=== PATIENT | female | born 2000 | race Caucasian/White ===

== ENCOUNTER 2022-05-03 08:18 | Emergency (ER) | payer BC, MEDICAID, SELFPAY ==
--- NOTE | ~2022-05-03 | CT_ITS ---
EXAMINATION: CT abdomen pelvis wo con DATE: 05/03/2022 09:38 INDICATION: Right flank pain TECHNIQUE: Computed tomography (CT) of the abdomen and pelvis was performed without intravenous contr ast. The dose-length product (DLP) was 1381.88 mGy-cm. Automated exposure control and iterative recon struction technique were employed. COMPARISON: None FINDINGS: The lung bases are clear. The heart size is normal. The liver, spleen, pancreas, and adrena l glands are normal. A stone is present in the nondistended gallbladder. The kidneys are unremarkable . No stones are identified in the kidneys, ureters, or bladder. There is no hydronephrosis or hydrour eter. The appendix is normal. No pathologically enlarged abdominal or pelvic lymph nodes are identifi ed. There is no free intraperitoneal gas or evidence of bowel obstruction. IMPRESSION: 1. No CT correlate for the patient's symptoms. 2. Cholelithiasis without evidence of cholecystitis. Reviewed, dictated and finalized at location A. [employer]
[2022-05-03 08:25] VITALS: BP 150/92; PULSE 90; RESP 16; TEMP 36.6; O2SAT 99
--- NOTE | 2022-05-03 08:51 | ED.ABDPAIN ---
HPI - Abdominal Pain General Chief Complaint: Abdominal Pain Stated Complaint: ABD AND BACK PAIN Time Seen by Provider: 05/03/22 08:51 Source: patient and RN notes reviewed Mode of arrival: ambulatory Limitations: no limitations History of Present Illness HPI narrative: patient states she began having some lower back flank pain early this morning. She has a history of kidney stones. 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 She denies any symptoms of . She denies any dysuria, hematuria. With pain she has associated nausea vomiting. She is not vomiting now. MD elicited complaint: flank pain Pertinent past history: other ( kidney stones) Onset (ago): hour(s) (6) Pain Consistency: constant Location: R flank Severity: moderate Quality: stabbing and sharp Radiation: RLQ Migration to: no migration Exacerbating factors: nothing Relieving factors: nothing Associated symptoms: nausea and vomiting Related Data Home Medications Medication Instructions Recorded Confirmed No Home Medications 05/03/22 05/03/22 Allergies Allergy/AdvReac Type Severity Reaction Status Date / Time No Known Allergies Allergy Verified 05/03/22 08:51 Review of Systems Review of Systems: All systems reviewed & are unremarkable except as noted in HPI and below PMFSH Past Medical History Medical History (Updated 05/03/22 @ 10:25 by Manish Coon MD) Kidney stones Morbid obesity Surgical History Surgical History (Updated 05/03/22 @ 10:21 by Manish Coon MD) No pertinent past surgical history Social History Social History (Updated 05/03/22 @ 10:22 by Manish Coon MD) Smoking status: Never smoker Exam Const: General: healthy appearing, no acute distress and alert Nutritional Appearance: well nourished and obese morbidly obese Orientation/consciousness: patient oriented x3 Limitations: no limitations Other: female nurse in room during examination. HENMT: Head: normal to inspection Ears: external ears normal Face/Nose/Sinus: Normal external nose present Face and sinus: normal facial exam Mouth: Yes moist mucous membranes Eyes: Conjunctivae: conjunctivae normal Pupils: Equal, round and reactive pupils present EOM: EOMs intact bilaterally Neck: Neck: normal visual inspection Resp: Effort & Inspection: normal respiratory effort Auscultation: clear to auscultation bilaterally Cardio: Rate: regular rate Rhythm: regular rhythm GI: GI Palp: Yes Soft to palpation, Yes Tenderness to palpation present (GI) ( Mild right upper quadrant), No Guarding due to palpation present (GI) and No Rebound tenderness present Auscultation: normal bowel sounds Back/Spine/Pelvis: Back: CVA tenderness ( mild right) Cervical Spine: cervical ROM normal Thoracic/Lumbar Spine: thoraco-lumbar ROM normal Skin: General skin exam: normal color Rashes: no rashes Neuro: General: patient oriented x3, moves all extremities, no focal motor deficits and CN's II-XI intact bilaterally Speech: normal speech Gait exam (Neuro): Normal gait present Extrem: General: normal to inspection and no clubbing, cyanosis or edema Psych: Mental Status: mental status grossly normal Affect: normal affect Attitude: cooperative Course Vital Signs Vital signs: Vital Signs Temperature 36.6 C 05/03/22 08:25 Pulse Rate 90 05/03/22 08:25 Respiratory Rate 16 05/03/22 08:25 Blood Pressure 150/92 H 05/03/22 08:25 Pulse Oximetry 99 05/03/22 08:25 Oxygen Delivery Room Air 05/03/22 08:25 Temperature 36.7 C 05/03/22 10:30 Pulse Rate 88 05/03/22 10:30 Respiratory Rate 16 05/03/22 10:30 Blood Pressure 148/92 H 05/03/22 10:30 Pulse Oximetry 99 05/03/22 10:30 Oxygen Delivery Room Air 05/03/22 10:30 MDM - Abdominal Pain Differential Diagnosis Differential diagnosis: Likely abdominal pain, calculus of kidney, small bowel obstru
[2022-05-03 08:56] LABS: Pregnancy On Board Control Positive; Urine Pregnancy Test Negative
[2022-05-03 08:58] LABS: Appearance Urine Clear (Clear); Color Urine Yellow (Yellow)
[2022-05-03 08:59] LABS: Add Urine Microscopic? NO; Bilirubin Urine Negative (Negative); Blood Urine Negative (Negative); Glucose Urine UA Negative (Negative); Ketones Urine Negative (Negative); Leukocyte Esterase Ur Negative LEU/UL (Negative); Nitrate Urine Negative (Negative); Protein Urine Negative (Negative); Specific Grav Ur > 1.030 (1.010-1.020); Urobilinogen Urine 0.2 mg/dL (0.2-1.0)
[2022-05-03 09:25] LABS: Basophils Absolute Auto 0.05 K/mm3 (0.00-0.10); Basophils Percent Auto 0.3 % (0.0-1.0); Eosinophils Absolute Auto 0.05 K/mm3 (0.02-0.50); Eosinophils Percent Auto 0.3 % (1.0-6.0); Hematocrit 41.6 % (35.0-49.0); Hemoglobin 13.2 g/dL (12.0-15.0); Immature Granulocyte Absolute 0.08 K/mm3 (0.00-0.00); Immature Granulocyte Percent A 0.5 % (0.0-0.0); Lymphocytes Absolute Auto 1.86 K/mm3 (1.10-4.50); Lymphocytes Percent Auto 11.8 % (18.0-42.0); Mean Corpuscular HGB Conc 31.7 g/dL (32.0-36.0); Mean Corpuscular Hemoglobin 25.5 pg (27.0-31.0); Mean Corpuscular Volume 80.5 fL (78.0-102.0); Mean Platelet Volume 9.5 fl (9.2-11.8); Monocytes Absolute Auto 0.51 K/mm3 (0.10-0.90); Monocytes Percent Auto 3.2 % (2.0-11.0); Neutrophils Absolute Auto 13.2 K/mm3 (1.7-7.2); Neutrophils Percent Auto 83.9 % (50.0-70.0); Platelet Count Result 379 K/mm3 (150-420); Red Blood Count 5.17 M/mm3 (4.20-5.40); Red Cell Distribution Width 15.8 % (11.6-14.4); White Blood Count 15.7 K/mm3 (4.8-10.8)
[2022-05-03 09:56] LABS: Alanine Aminotransferase 20 U/L (14-59); Albumin Level 3.8 g/dL (3.4-5.0); Alkaline Phosphatase 71 U/L (46-116); Anion Gap 8 mmol/L (8-16); Aspartate Amino Transferase 11 U/L (15-37); Bilirubin,Total 0.2 mg/dL (0.00-1.00); Blood Urea Nitrogen 14 mg/dL (7-18); CRP 3.7 mg/dL (0.0-0.9); Calcium 8.9 mg/dL (8.5-10.1); Carbon Dioxide 27 mmol/L (21-32); Chloride 104 mmol/L (98-108); Estimated CRCL calculation 124 ml/min; Estimated Glomerular Filt Rate > 60; Glucose 110 mg/dL (70-99); Osmolality Calculated 289 mOsm/kg (285-295); Potassium 4.4 mmol/L (3.5-5.1); Sodium 139 mmol/L (136-145); Total Protein 8.2 g/dL (6.4-8.2)
--- NOTE | 2022-05-03 10:26 | PC.NURSE ---
ERP WAS AT BEDSIDE SPEAKING WITH PT AND MOTHER. WILL CONTINUE TO MONITOR.
[2022-05-03 10:30] VITALS: BP 148/92; PULSE 88; RESP 16; TEMP 36.7; O2SAT 99
== END 2022-05-03 10:30 | disposition home or self-care (01) ==
PROVIDERS: Emergency Provider Emergency Medicine; PCP Nurse Practitioner
DX: R10.9 Unspecified abdominal pain (principal)
CPT/HCPCS: 36415; 74176; 80053; 81003; 81025; 85025; 86140; 99284

== ENCOUNTER 2024-09-15 15:33 | Emergency (ER) | payer OTHER, SELFPAY ==
[2024-09-15] VITALS (7 sets, daily range): BP systolic 111–163; BP diastolic 82–95; PULSE 79–98; RESP 16–17; TEMP 37.2–37.8; O2SAT 99–100
--- NOTE | ~2024-09-15 | CT_ITS ---
CT abdomen pelvis wo con Ordering provider: Ari Colon MD History: 23 years Female with . Rt. side flank/ low back pain. Nausea, vomiting x4 days . Comparison: None. Technique: CT abdomen and pelvis without IV and without oral contrast. Automated exposure control and iterative reconstruction technique were employed. The dose-length product was 1657.33 mGy-cm. Findings: VISUALIZED LOWER CHEST: Normal. UPPER ABDOMINAL ORGANS: Liver: Borderline hepatomegaly. Gallbladder: Cholelithiasis. Spleen: Normal. Stomach/duodenum: Normal. Pancreas: Normal. Adrenals: Normal. Kidneys: Normal. PELVIC ORGANS: The bladder is normal. Slightly prominent left ovary which measures 2.6 x 4.3 cm. Cli nical correlation advised. BOWEL AND MESENTERY: Colon: No evidence of diverticulitis.. Normal appendix. Small Bowel: Normal. No obstruction. Peritoneum/mesentery: No free air or free fluid. No mesenteric lymphadenopathy. Small mesenteric lymp h nodes are noted. RETROPERITONEUM: Normal aorta. No retroperitoneal lymphadenopathy. MUSCULOSKELETAL: Superficial soft tissues: The superficial soft tissues are normal. Bones: Normal spine. IMPRESSION: 1. Cholelithiasis. 2. Mild hepatomegaly. 3. Slightly prominent left ovary. Ultrasound evaluation advised. 4. No evidence of appendicitis, diverticulitis or intestinal obstruction. No kidney stones. Reviewed, dictated and finalized at location A. IMPRESSION: 1. Cholelithiasis. 2. Mild hepatomegaly. 3. Slightly prominent left ovary. Ultrasound evaluation advised. 4. No evidence of appendicitis, diverticulitis or intestinal obstruction. No k idney stones.
--- OUTSIDE RECORDS SUMMARY | 2024-09-15 15:36 | XMS_ITS | Encounter Summary ---
Author Organization [facility] Address [address] [place] [id number] Care Team Providers Care Workers Compensation Examiner Name Role Phone Lilo Samuel [facility] Primary Care Provider [phone] Encounter Details Date Type Department Care Team (Late st Contact Info) Description 10/27/2018 Abstract SFL CONVERSION [address] [place] [address] , Generic Conversion, Social History Tobacco Use Types Packs/Day Years Used Date Smoking Tobacco: Never Assessed Comments Unknown Sex and Gender Information Value Date Recorded Sex Assigned at Not on file 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
--- OUTSIDE RECORDS SUMMARY | 2024-09-15 15:36 | XMS_ITS | Clinical Summary ---
Author Organization [facility] Address [address] [place] [id number] Care Team Providers Care Hair Preparer Name Role Phone Lilo Samuel [facility] Primary Care Provider [phone] Allergies No known active allergies Medications NON FORMULARYIndica tions: control pill Indications: control pill Active Social History Tobacco Use Types Packs/Day Years Used Date Smoking Tobacco: Never Smokeless Tobacco: Never Alcohol Use Standard Drinks/Week Comments Never 0 (1 standard drink = 0.6 oz pur e alcohol) Comments No Sex and Gender Information Value Date Recorded Sex Assigned at Not on file 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 Gender Identity Not on file Sexual Orientation Not on file Last Filed Vital Signs Vital Sign Reading Time Taken Comments Blood Pressure 168/99 02/06/2021 8:36 AM CDT Pulse 70 02/06/2021 8:36 AM CDT Temperature 35.9 C (96.6 F) 02/06/2021 8:36 AM CDT Respiratory Rate 20 02/06/2021 8:36 AM CDT Oxygen Saturation 100% 02/06/2021 8:36 AM CDT Inhaled Oxygen Concentration - - Weight 134.7 kg (297 lb) 02/06/2021 8:36 AM CDT Height 160 cm (5' 3 ) 02/06/2021 8:36 AM CDT Body Mass Index 52.61 02/06/2021 8:36 AM CDT Plan of Treatment Health Maintenance Due Date Last Done Comments Annual Physical 11/17/2002 Hepatitis C 11/17/2017 Hepatitis B Vaccines (1 of 3 - 19+ 3-dose series) 11/17/2018 DTaP, Tdap and Td Vaccines (7 - Tdap) 12/21/2019 12/20/2009, 12/23/2004, 02/21/2002, Additional history exists COVID-19 Vaccine ( season) 2024 12/03/2020, 11/09/2020 Cervical Cancer Screening Pap Smear (Age 21 to 29) Every 3 Years 01/29/2024 01/28/2021, 01/28/2021, 01/28/2021 Cervical Cancer Screening 01/29/2024 HPV Vaccines Completed 01/21/2014, 01/21, 12/10/2010 Meningococcal Vaccine Completed 12/21/2016, 014 Meningococcal B Vaccine Aged Out No l onger eligible based on patient's age to complete this topic Pneumococcal Vaccine: Pediatrics (0 to 5 Years) and At-Risk Patients (6 to 49 Years) Aged Out No longer eligible based on patient's age to complete this topic RSV Immunizations Under 20 Months Aged Out No longer eligible based on patient's age to complete this topic Insurance [place] [address] [address] MEDICAID Care Teams Hair Preparer Relationship Specialty Start Date End Date Lilo Samuel FNP-BC [address] [place] [address] PCP - General NURSE PRACTITIONER 02/06/21
--- OUTSIDE RECORDS SUMMARY | 2024-09-15 15:36 | XMS_ITS | Data Portability ---
Author Organization [facility] [place] Address [address] [place] [address] [place] [address] Assessment Encounter Date Assessment Date Assessment LastModified by Organization Details LastModified Time 01/28/2021 01/28/2021 Annual gynecological exam performed. Patient will come back in a year unless there are new symptoms. Not available 01/28/2021 12:51:00 06/03/2024 06/03/2024 Annual gynecological exam performed. Patient will come back in a year unless there are new symptoms. [email or web address] Not available 05/24/2024 10:03:11 Plan of Treatment Reminders Order Date Submit Date Provider Last Modified By Organization Details Last Modified Time Details Appointments None recorded. Lab pap, IG + reflex HPV if ASC-U - if hpv positive run subtyping 16, 18/45 2024 025 [facility] (Lab), [address], [place], [address], 09:59:55 test, urine 2024 025 [place], [address], [place], [address], 11:27:43 HbA1c (hemoglobin A1c), blood 2024 025 [facility] (Lab), [address], [place], [address], 5 22:35:11 TSH, serum or plasma 2024 025 [facility] (Lab), [address], [place], [address], 5 22:35:12 progesteron e, serum 2024 025 [facility] (Lab), [address] [place], [address], 5 22:35:12 prolactin, serum 2024 025 [facility] (Lab), [address] [place], [address], 5 22:35:12 FSH (follicle-s timulating hormone), serum 2024 025 [facility] (Lab), [address] [place], [address], 5 22:35:13 estradiol, serum 2024 025 [facility] (Lab), [address] [place], [address], 5 22:35:12 lh (luteinizin g hormone), serum 2024 025 [facility] (Lab), [address] [place], [address], 5 22:35:13 dhea-sulfat e, serum 2024 025 [facility] (Lab), [address] [place], [address], 5 22:35:11 testosteron e free/testos terone total, ratio, serum 2024 025 [facility] (Lab), [address] [place], [address], 5 22:35:13 17-hydroxyp rogesterone , QN, serum 2024 025 [facility] (Lab), [address], [place], [address], 5 22:35:13 lipid panel, blood 2024 025 [facility] (Lab), [address], [place], [address], 5 22:35:11 anti-lockett raymond hormone (amh), serum 2020 021 [facility], [address], [place], [address], 17:14:27 lh + FSH, serum 2020 021 [facility], [address], [place], [address], 17:14:27 CBC w/ auto diff 2020 021 [facility], [address], [place], [address], 17:14:27 Referral None recorded. Procedures None recorded. Surgeries None recorded. Imaging US, pelvis 2020 021 [email or web address] [place], [address], [address], [place], [address], 21:09:49 US, transvagina l 2020 021 [email or web address] [place], [address], [address], [place], [address], 21:09:49 US, pelvis, complete 2020 021 [email or web address] [place], [address], [place], [address], 2 11:28:07 Medication Orders Provera 10 mg tablet 2024 025 [facility]ARGAR[facility] [place], [address], [place], [address], 5 11:26:14 clomiphene citrate 50 mg tablet 2024 025 MARGARITA [facility] [place], [address], [place], [address], 5 11:26:16 Cyclafem 1/35 (28) 1 mg-35 mcg tablet 2020 021 [email or web address] [facility] [place], [address], [place], [address], 5 10:51:45 Cyclafem 1/35 (28) 1 mg-35 mcg tablet 2020 021 [email or web address] [facility] [place], [address], [place], [address], 5 10:51:45 Patient TargetsNo targets recorded. Patient InstructionsNo instructions recorded. Reason for Referral None Reported. 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 Locat ion: [place] Patho logy Recei basilio: 01/29 0734 First Scree n: McBri de, Marilee ret, CT Speci men: Scree naheed Pap - Image d, Cervi x STATE MENT OF ADEQU ACY: Satis facto ry for evalu ation Trans forma tion zone compo nent prese nt FINAL DIAGN OSIS: Negat jillian for Intra epith elial Lesio n or Pallavi dali (NIL) Funga l organ isms morph ologi milton consi stent with Carissa da spp Elect robb candelariajuli hardik d by Marilee Delcid ret, CT on 2020 at 9:01 AM ----- ----- ----- ----- ----- ----- ----- ----- ----- ----- ----- ----- ----- ----- ----- ----- ----- ---- COMME NT: Note: This speci men was revie wed by a Cytot echno logis t and/o r Patho logis t (as indic ated in this repor t) after evalu ation using the Thinp rep Imagi ng Syste m. CLINI GEREMIAS INFOR MATIO N: Menst rual Statu s: LMP (if appli cable ): Clini geremias Histo ry/Pr eviou s Pap: Type of Neopl hillary (if appli cable ): Signi fican t Clini geremias Findi ngs: Other Histo ry: Hormo tariq (if appli cable ): PAP EDUCA NEVA L NOTE: The Pap Test is a scree naheed test with an inher ent false negat jillian rate. Liqui d-bas e sampl ing may decre ase, but will not elimi royer, false negat jillian resul ts. A negat jillian resul t does not precl ude the prese nce and/o r devel opmen t of disea se, since the prese nce of abnor mal cells in the sampl e depen ds on the locat ion of the lesio n and sampl ing techn ique. Obi nued regul ar scree naheed is the best metho d of cance r preve ntion . If repor jane cytol ogic findi ng do not corre late with physi geremias and/o r histo rical findi ngs, critical access hospital er inves tigat ion is recom jeanie d, as clini milton starr nted. Not Available [facility] (Lab) [address], [place], [address], 02/02/2021 10:03:54 01/29/20 21 01/28/2021 CT/GC (SYBIL) , THINP REP VIAL chlamydia trachomatis, PCR Negati ve negati ve Not Available [facility] (Lab) [address], [place], [address], 02/02/2021 10:03:55 01/29/20 21 01/28/2021 CT/GC (SYBIL) , THINP REP VIAL neisseria gonorrhoeae, PCR Negati ve negati ve Not Available [facility] (Lab) [address], [place], [address], 02/02/2021 10:03:55 01/29/20 21 01/28/2021 TRICH OMONA S VAGIN SUSAN (RRNA ) trichomonas vaginalis ribosomal RNA (rrna) Negati ve negati ve Not Available [facility] (Lab) [address], [place], [address], 02/02/2021 10:03:56 06/03/19 25 06/03/2024 IMAGE GUIDE D PAP, REFLE X HPV IF ASCUS ONLY image guided Pap, reflex HPV ASCUS only SEE RESULT S BELOW CASE REPOR T: Cytol ogy Gynec ologi geremias Repor t Case: [id number] Autho paulette g Provi andres: Dermo dy, Violet , 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 ----- ----- ----- ----- ----- ----- ----- ----- ----- ----- ----- ----- ----- ----- ----- ----- ----- ---- FINAL DIAGN OSIS: Negat jillian for Intra epith elial Lesio nilda or Pallavi mcnally (NIL) . 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 CLINI GEREMIAS INFOR MATIO N: Menst rual Statu s: LMP (if appli cable ): Clini geremias Histo ry/Pr eviou s Pap: Type of Neopl hillary (if appli cable ): Signi fican t Clini geremias Findi ngs: Other Histo ry: Hormo tariq (if appli cable ): PAP EDUCA NEVA L NOTE: The Pap Test is a scree naheed test with an inher ent false negat jillian rate. Liqui d-bas ed sampl ing may decre ase, but will not elimi royer, false negat jillian resul ts. A negat jillian resul t does not precl ude the prese nce and/o r devel opmen t of disea se, since the prese nce of abnor mal cells in the sampl e depen ds on the locat ion of the lesio n and sampl ing techn ique. Obi nued regul ar scree naheed is the best metho d of cance r preve ntion . If repor jane cytol ogic findi ng do not corre late with physi geremias and/o r histo rical findi ngs, furth er inves tigat ion is recom jeanie d, as clini milton starr nted. Not Available [facility] (Lab) [address], [place], [address], 06/09/2024 09:59:55 06/03/19 25 06/03/2024 DHEA SULFA TE DHEA-sulfate 666 ug/dL Femal e Range s Age(y ) Range (ug/d L) 10-15 34-28 0 15-20 65-36 8 20-25 148-4 07 25-35 99-34 0 35-45 61-33 7 45-55 35-25 6 55-65 19-20 5 65-75 9-246 > 75 12-15 4 : Routi ne : ENDOC ERVIC AL/CE RVICA L Not Available [facility] (Lab) [address], [place], [address], 06/11/2024 22:35:11 06/03/19 25 06/03/2024 HEMOG LOBIN A1C hemoglobin A1C 5.6 % 4.0-5. 6 : Routi ne : ENDOC ERVIC AL/CE RVICA L The Ameri can Diabe oliva Assoc iatio n recom mends that a prima ry goal of thera py shoul d be a HBA1C of < 7% and that physi cians shoul d reeva luate the treat ment regim en in patie nts with HBA1C value s consi stent ly > 8%. <5.7% Summer l 5.7 - 6.4% Incre ased risk for diabe oliva >=6.5 % Diagn ostic of diabe oliva <7.0% Goal of thera py >8.0% Actio n sugge sted Not Available [facility] (Lab) [address], [place], [address], 06/11/2024 22:35:11 06/03/19 25 06/03/2024 LIPID PANEL ,AMA (LDL- CALC) total cholesterol 139 mg/dL 0-199 Not Available [facility] (Lab) [address], [place], [address], 06/11/2024 22:35:11 06/03/19 25 06/03/2024 LIPID PANEL ,AMA (LDL- CALC) triglyceride s 82 mg/dL 0-150 NCEP Refer ence Value s for Trigl yceri william: Summer l: <150 mg/dL Borde rline High: 150 - 199 mg/dL High: 200 - 499 mg/dL Very High: >/= 500 mg/dL Not Available [facility] (Lab) [address], [place], [address], 06/11/2024 22:35:11 06/03/19 25 06/03/2024 LIPID PANEL ,AMA (LDL- CALC) HDL cholesterol 46 mg/dL >40 Not Available [facility] (Lab) [address], [place], [address], 06/11/2024 22:35:11 06/03/19 25 06/03/2024 LIPID PANEL ,AMA (LDL- CALC) LDL cholesterol 77 mg/dL 0-99 Cutof f value s recom jeanie d by the Natio nal Oumou stero l Educa tion Progr am: SHANDA ABLE: Oumou stero l <200 mg/dL LDL <100 mg/dL BORDE RLINE : Oumou stero l 200-2 39 mg/dL LDL 101-1 59 mg/dL HIGHE R RISK: Oumou stero l >240 mg/dL LDL >160 mg/dL , HDL <40 mg/dL Not Available [facility] (Lab) [address], [place], [address], 06/11/2024 22:35:11 06/03/19 25 06/03/2024 LIPID PANEL ,AMA (LDL- CALC) non-HDL cholesterol 93 mg/dL no refere nce range A reaso nable goal for non-H DL oumou stero l is one that is 30 mg/dL highe r than the LDL oumou stero l goal. Not Available [facility] (Lab) [address], [place], [address], 06/11/2024 22:35:11 06/03/19 25 06/03/2024 LIPID PANEL ,AMA (LDL- CALC) chol/HDL ratio 3.0 . 0.0-5. 0 : Altheai ne : ENDOC ERVIC AL/CE RVICA L On September 13, 2022, [facility] labor atori es griffin ed the equat ion for calcu latin g estim ated low-d ensit y lipop rotei n-cho leste rol (LDL- C) from the Fried leda equat ion to the Mala n/Hop kins equat ion. This new equat ion is only valid for lipid panel s with trigl yceri william < 400 mg/dL . Studi es have demon strat ed that this new equat ion will impro ve the accur acy of LDL-C , espec ially in scena adams when LDL-C gamaliel ntrat ions are relat ively low (< 100 mg/dL ), trigl yceri william are eleva jane, or patie nt is non-f astin g. Refer ences : - Mala munguia, Santiago Hensley, Ricardo Diaz , [facility] alfie hill, Aubrey De La Cruz, Alexei Topete. Saurabh portillo , and Sergio Wilks . 2013. Comp ariso n of a Novel Metho d vs the Fried leda Equat ion for Estim ating Low-D ensit y Lipop rotei n Oumou stero l Level s from the Stand malathi Lipid Profi le. GUSTAVO: The Journ al of the Ameri can Medic al Assoc iatio n 310 (19): 2060- . - Emilio murray V, Shelli J, Thomas murray A, Jazmín M, Josi e R, Vanita murray E, Saurabh portillo RS, Efe SR, Mala munguia SS. Fast ing Versu s Nonfa sting and Low-D ensit y Lipop rotei n Oumou stero l Accur acy. Circu latellen n. 2017May 23;137 (1):1 0-19. Not Available [facility] (Lab) [address], [place], [address], 06/11/2024 22:35:11 06/03/19 25 06/03/2024 TSH, REFLE X FREE T4 TSH 3.12 uIU/m L 0.30-5 .33 : Routi ne : ENDOC ERVIC AL/CE RVICA L Not Available [facility] (Lab) [address], [place], [address], 06/11/2024 22:35:12 06/03/19 25 06/03/2024 PROLA CTIN prolactin, total 8.28 NG/mL 4.79-2 3.30 This assay was perfo rmed using [employer] ratio n reage nts and test kits. Value s obtai dayton with other assay metho ds or kits canno t be used inter griffin eably . : Routi ne : ENDOC ERVIC AL/CE RVICA L Not Available [facility] (Lab) [address], [place], [address], 06/11/2024 22:35:12 06/03/19 25 06/03/2024 ESTRA DIOL estradiol 46.1 pg/mL This assay was perfo rmed using [employer] ratio n reage nts and test kits. Value s obtai dayton with other assay metho ds or kits canno t be used inter griffin eably . Femal e Estra diol Range s: Folli cular phase 12.4- 233 pg/mL Ovula tion phase 41.0- 398 pg/mL Lutea l phase 22.3- 341 pg/mL Postm enopa usal <5-13 8 pg/mL Healt hy Pregn ant Women 1st Trime ster 154-3 243 pg/mL 2nd Trime ster 1561- 64042 pg/mL 3rd Trime ster 8525- >3000 0 pg/mL : Routi ne : ENDOC ERVIC AL/CE RVICA L Not Available [facility] (Lab) [address] [place], [address], 06/11/2024 22:35:12 06/03/19 25 06/03/2024 PROGE STERO NE progesterone 0.32 NG/mL This assay was perfo rmed using [employer] ratio n reage nts and test kits. Value s obtai dayton with other assay metho ds or kits canno t be used inter [facility] . Femal e Proge stero ne Range s: Folli cular phase 0.06- 0.89 ng/mL Ovula tion phase 0.12- 12.00 ng/mL Lutea l phase 1.83- 23.90 ng/mL Postm enopa usal <0.05 -0.13 ng/mL Healt hy Pregn ant Women 1st Trime ster 11.0- 44.30 2nd Trime ster 25.40 -83.3 0 3rd Trime ster 58.70 -214. 00 : Routi ne : ENDOC ERVIC AL/CE RVICA L Not Available [facility] (Lab) [address] [place], [address], 06/11/2024 22:35:12 06/03/19 25 06/03/2024 FSH FSH 4.8 mIU/m L This assay was perfo rmed using [employer] ratio n reage nts and test kits. Value s obtai dayton with other assay metho ds or kits canno t be used inter [facility] . Femal es Folli cular : 3.5-1 2.5 mIU/m L Ovula tion: 4.7-2 1.5 mIU/m L Lutea l: 1.7-7 .7 mIU/m L Postm enopa use: 25.8- 134.8 mIU/m L : Routi ne : ENDOC ERVIC AL/CE RVICA L Not Available [facility] (Lab) [address] [place], [address], 06/11/2024 22:35:13 06/03/19 25 06/03/2024 LH (LUTE NIZIN G HORMO NE) LH 10.1 mIU/m L This assay was perfo rmed using [employer] ratio n reage nts and test kits. Value s obtai dayton with other assay metho ds or kits canno t be used inter [facility] . Femal es Mid-F ollic ular: 2.4-1 2.6 mIU/m L Mid-C ycle: 14.0- 95.6 mIU/m L Mid-L uteal : 1.0-1 1.4 mIU/m L Postm enopa use: 7.7-5 8.5 mIU/m L : Routi ne : ENDOC ERVIC AL/CE RVICA L Not Available [facility] (Lab) [address], [place], [address], 06/11/2024 22:35:13 06/03/19 25 06/03/2024 TESTO STERO NE, FREE( DIALY SIS) AND TOTAL (LC/M S/MS) testosterone , total 44 NG/dL 2-45 For addit ional infor derian neal e refer to http: //[facility] shyam munguia.que stdia gnost ics.c om/fa q/ Total Testo stero neLCM SMSFA Q165 (This link is being provi ded for infor edvin rizvi/ educa neva l purpo ses only. ) This test was devel oped and its damian tical perfo rmanc e greg cteri stics have been deter mined by [employer] mazin isaac [facility], [place]. It has not been clear ed or appro basilio by the U.S. Food and Drug Admin istra tion. This assay has been valid ated pursu ant to the CLIA regul ation s and is used for clini geremias purpo ses. Not Available [facility] (Lab) [address], [place], [address], 06/11/2024 22:35:13 06/03/19 25 06/03/2024 TESTO STERO NE, FREE( DIALY SIS) AND TOTAL (LC/M S/MS) testosterone , free 7.6 pg/mL 0.1-6. 4 high This test was devel oped and its damian tical perfo rmanc e greg cteri stics have been deter mined by [employer] [facility] [place], [place]. It has not been clear ed or appro basilio by the U.S. Food and Drug Admin istra tion. This assay has been valid ated pursu ant to the CLIA regul ation s and is used for clini geremias purpo ses. : Routi ne : ENDOC ERVIC AL/CE RVICA L Perfo rming Organ izati on [facility]for [facility]: Site ID: [id number] Name: [employer] [facility] Insti tute Addre ss: [id number] [place], [place] Direc tor: Negro Salmon MD PhD Not Available [facility] (Lab) [address], [place], [address], 06/11/2024 22:35:13 06/03/19 25 06/03/2024 17-OH PROGE STERO NE 17-hydroxypr ogesterone, lc/MS/MS 37 NG/dL Adult Femal e Refer ence Range s for 17-Hy droxy proge stero ne: Pre-M enopa usal Mid Folli cular : 23-10 2 ng/dL Pre-M enopa usal Surge : 67-34 9 ng/dL Pre-M enopa usal Mid Lutea l: 139-4 31 ng/dL Postm enopa usal Phase : < or = 45 ng/dL Pregn mikhail: First Trime ster: 78-45 7 ng/dL Secon d Trime ster: 90-35 7 ng/dL Third Trime ster: 144-5 78 ng/dL This test was devel oped and its damian tical perfo rmanc e greg cteri stics have been deter mined by [facility]. It has not been clear ed or appro basilio by FDA. This assay has been valid ated pursu ant to the CLIA regul ation s and is used for clini geremias purpo ses. : Routi ne : ENDOC ERVIC AL/CE RVICA L Perfo rming Organ izati on Infor matio n: Site ID: [id number] Name: [facility]/Dajuan hols [facility] Miky Sanchezis tranjuan miguel , Addre ss: [id number] [place] [address] Direc tor: Joleen wolfe MD,Ph D,COLE Not Available [facility] (Lab) [address], [place], [address], 06/11/2024 22:35:13 06/03/19 25 06/03/2024 pregn mikhail test, urine HCG negati ve Not Available [place] [address], [place], [address], 06/03/2024 11:27:19 01/08/20 21 01/07/2021 US, pelvi s No observ ation record ed. [email or web address] [place] [address], [place], [address], 01/07/2021 15:44:04 01/08/20 21 01/07/2021 US, trans vagin al No observ ation record ed. [email or web address] [place] [address], [place], [address], 01/07/2021 15:44:13 01/08/20 21 01/07/2021 US, pelvi s No observ ation record ed. [email or web address] [address], [place], [address], 01/07/2021 19:54:33 Result Notes Documentation Provider Name and Address Organization Details Recorded Time Anti-mullerian Hormone (amh), Serum : amh, fsh, lh, cbc diff A Ac siddiqui [facility] 02/23/2021 09:33:24 Procedures Surgical History Date Name Laterality Status Provider Name and Address Organization Details Recorded Time 01/28/2021 Date of Last Pap Smear completed Lety Verdugo [facility] 03/31/2021 19:42:23 Imaging Results Imaging Date Name Status LastModified by Organization Details LastModified Time 01/07/2021 US, pelvis completed [email or web address] [place] [address], [place], [address], 01/07/2021 15:44:04 01/07/2021 US, transvaginal completed [email or web address] [facility] [facility] [address], [place], [address], 01/07/2021 15:44:13 01/07/2021 US, pelvis completed [email or web address] [address], [place], [address], 01/07/2021 19:54:33 Procedure Notes None recorded. Medical Equipment None Reported. Allergies No known drug allergies Medications Name Sig Start Date Stop Date Status Note LastModified by Organization Details LastModified Time cyclobenzap rine 10 mg tablet 01/28 completed Not Available Not Available Not Available clomiphene citrate 50 mg tablet Take one tablet PO once daily for 5 days starting on cycle day 5 2024 active Not Available Not Available Not Avai lable ondansetron HCl 4 mg tablet 01/28 completed Not Available Not Available Not Available ciprofloxac in 500 mg tablet 01/27 completed Not Available Not Available Not Available Provera 10 mg tablet Take 1 tablet every day by oral route for 10 days. 2024 active Not Available Not Available Not Avai lable Tiffany 0.35 mg tablet 06/03 completed Not Available Not Available Not Available Cyclafem 1/35 (28) 1 mg-35 mcg tablet Take 1 tablet every day by oral route for 30 days. 06/03 completed Not Available Not Available Not Available Vitals Date Recorded Body height Body mass index (BMI) Body weight Provider Name and Address Organization Details Last Updated DateTime 12/29/2020 158.12 cm 53.9 kg/m2 596734.93 g Lety Verdugo [facility] 12/29/2020 14:56:12 Date Recorded Systolic blood pressure Diastolic blood pressure Provider Name and Address Organization Details Last Updated DateTime 12/29/2020 132 mm[Hg] 82 mm[Hg] Payton Page, [facility] [address], [place], [address], [facility] 12/29/2020 15:19:26 Date Recorded Body height Body mass index (BMI) Body weight Provider Name and Address Organization Details Last Updated DateTime 01/28/2021 158.12 cm 53.9 kg/m2 776869.93 g Lety [facility] 01/28/2021 12:52:31 Date Recorded Systolic blood pressure Diastolic blood pressure Provider Name and Address Organization Details Last Updated DateTime 01/28/2021 124 mm[Hg] 81 mm[Hg] Payton Page [facility] [address], [place], [address], [facility] 01/28/2021 12:57:57 Date Recorded Body height Body mass index (BMI) Body weight Provider Name and Address Organization Details Last Updated DateTime 04/01/2021 158.12 cm 53.5 kg/m2 597006.75 g [facility] 04/01/2021 11:37:13 Date Recorded Systolic blood pressure Diastolic blood pressure Provider Name and Address Organization Details Last Updated DateTime 04/01/2021 122 mm[Hg] 80 mm[Hg] Payton Page, [facility] [address], [place], [address], [facility] 04/01/2021 12:01:09 Date Recorded Body height Body mass index (BMI) Body weight Systolic blood pressure Diastolic blood pressure Provider Name and Address Organization Details Last Updated DateTime 06/03/2024 158.12 cm 56.2 kg/m2 782247.9 2 g 132 mm[Hg] 84 mm[Hg] Kaylee Monzon [facility] 10:52:02 Social History Question Answer Notes LastModified by Organizat ion Details LastModified Time Do You Have An Advance Directive? No Information not available 12/29/2020 What Is Your Level Of Alcohol Consumption? Occasional Information not available 12/29/2020 How Many Years Have You Consumed Alcohol? 1 Information not available 12/29/2020 Are You Blind Or Do You Have Difficulty Seeing? No Information not available 12/29/2020 What Is Your Level Of Caffeine Consumption? Occasional Information not available 12/29/2020 How Much Tobacco Do You Chew? None Information not available 12/29/2020 In The 14 Days Before Symptom Onset, Have You Had Close Contact With A Laboratory-confir med COVID-19 While That Case Was Ill? No Information not available 12/29/2020 In The 14 Days Before Symptom Onset, Have You Had Close Contact With A Person Who Is Under Investigation For COVID-19 While That Person Was Ill? No Information not available 12/29/2020 Have You Been To An Area Known To Be High Risk For COVID-19? No Information not available 12/29/2020 Are You Deaf Or Do You Have Serious Difficulty Hearing? No Information not available 12/29/2020 What Type Of Diet Are You Following? REGULAR Information not available 12/29/2020 What Is The Highest Grade Or Level Of School You Have Completed Or The Highest Degree You Have Received? 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 No Information not available 12/29/2020 Do You Use Protection During Sex? No Information not available 12/29/2020 Do You Use Your Seat Belt Or Car Seat Routinely? Yes Information not available 12/29/2020 Do You Have Smoke And Carbon Monoxide Detectors In Your Home? Yes Information not available 12/29/2020 How Much Tobacco Do You Smoke? No Information not available 12/29/2020 Do You Feel Stressed (tense, Restless, Nervous, Or Anxious, Or Unable To Sleep At Night)? [id number] Information not available 12/29/2020 Do You Use Any Illicit Or Recreational Drugs? No Information not available 12/29/2020 Do You Use Sunscreen Routinely? Yes Information not available 12/29/2020 Have You Used IV Drugs? No Information not available 12/29/2020 Sex: Female Functional Status Question Answer Note LastModified by Organization D etails LastModified Time Are you able to walk? YESWOREST Information not available 12/29/2020 What is your exercise level? None Information not available 12/29/2020 Mental Status None recorded. Family History Relationship Description Onset Age of this Age Resolved Age Notes LastModified by Organization Details LastModified Time Maternal Aunt Heart disease Not available 2020 14:56:24 Maternal Grandmother Heart disease Not available 2020 14:56:24 Paternal Grandfather Heart disease Not available 2020 14:57:14 Maternal Grandfather Heart disease Not available 2020 14:57:26 Medical History Condition Response No Past Medical History Y Gynecological History Statement/Question Response Abnormal Pap N Flow Moderate Date of LMP 03/05/2024 On BCP's at Conception? N N Was last menstrual period normal Y STIs/STDs N HPV Vaccine Y Duration of Flow (days) 7 Current Control Method Seeking Pre gnancy Are cycles usually normal N Sexually Active? Y N/A Age of first menstrual cycle 13 Date of Last Pap Smear 01/28/2021 Sexual Problems? N Desired Control Method Seeking Pre gnancy LMP Approximate N Obstetrics History GPAL:G 0 P 0 0 0 0 Past Encounters Encounter ID Performer Location Encounter Start Date Encounter Closed Date Diagnosis/Indication Diagnosis SNOMED-CT Code Diagnosis ICD10 Code Diagnosis Note [id number] [facility] [address] [address] 12/29/2020 14:15:28 12/29/2020 15:41:45 Secondary amenorrhea [id number] N91.1 Update Pat do EMBx/Pap/u pdate any labs that were not already done at her next visit.We discussed each of these things in full today so she knows that to expect & can mentally/e motionally prepare herself. We discussed reasons for Amenorrhea & informatio n was given for home review.Terrence mendez consider trial of provera or a OCP once we have completed the discussed components of her initial work up.WWE/Fol low up/Possibl e Embx at visit-30mi nsTVUS updated Time spent in visit is a total of 36 mins with at least 50% of visit consisting of counseling and review of plan of care.Addit ional precaution kassy measures were taken to minimize potential exposure to the Covid-19 virus during this patient s visit, including available hand gold leaf printer upon arrive, temperatur e check and being asked a series of screening questions. All staff wore face coverings during this encounter, as well as provided additional cleaning and sanitizing of all surfaces, including countertop s, pens, chairs, door handles, light switches, etc, prior to and following the patient s visit. [id number] [facility] [address],[facility] [place] [address] 01/07/2021 13:49:06 01/07/2021 14:18:07 Amenorrhea [id number] N91.2 [id number] Payton Page [facility] [address],[facility] [place] [address] 01/28/2021 12:16:48 01/28/2021 15:01:53 Gynecologic examination [id number] Z01.419 Take Calcium with Vitamin D 1200mg daily if not receiving in daily diet. It is strongly advised to have an annual flu shot and up can obtain at most pharmacies . If you have not had a TDap shot in the last 10 years you should obtain one as well. Discussed with patient & provided with informatio n regarding Gardisil vaccine to prevent the 4 strains for HPV that cause cervical cancer if under age 26. Encourage safe sexual practices, to use condoms and limit partners if not already in a monogamous relationsh ip. Do monthly self breast exams. Have mammogram yearly or every other year depending on family history. BRCA testing is now available for patients with strong genetic history of female cancer. If interested contact the office. Engage in daily exercise of low impact aerobic exercise 45-60 minutes 4-5 times weekly. Avoid tobacco and illicit drugs as well as using moderation with alcohol intake less than 1-2 8 oz beverages daily. This lifestyle behavior pattern will lead to less health conditions and longer life span. If BMI greater than 25 weight watchers or dietary consult advised. Patient received above instructio ns, and questions have been answered. If you have any questions please call or respond to this email. Patient was made aware of the patient portal and may obtain a paper copy of today's plan if desired. Primary pap doneSTD sent Secondary amenorrhea [id number] N91.1 TVUS reviewed wnlWe agreed to defer EMBx at this time with a lining of 5mm; but will consider moving forward to ensure no cellular abnormalit ies of lining. Routine labs reviewed that were completed from her PCP.Additi onal labs req given to complete at work since they are free.OCP challenge to see if we can even induce a withdrawal bleed. We did discuss that moving forward a referral to [facility] since her biggest goal is . RTO x 2mos.If no menses then we need [place] r/[place]. [id number] Payton Page [facility] [address] [address] 04/01/2021 11:27:35 04/01/2021 12:06:02 Secondary amenorrhea [id number] N91.1 Successful menstrual cycle with use of OCP.We decided to continue this therapy.Wh en she is ready to start trying for she will d/c her OCP.If she does not at that time have a menstrual cycle either monthly or every 3mos.She will contact our office & we will refer her to [facility] to discuss assistance with achieving . No other questions or concerns today. RF sent x 1yr Time spent in visit is a total of 15 mins with at least 50% of visit consisting of counseling and review of plan of care.Addit ional precaution kassy measures were taken to minimize potential exposure to the Covid-19 virus during this patient s visit, including available hand gold leaf printer upon arrive, temperatur e check and being asked a series of screening questions. All staff wore face coverings during this encounter, as well as provided additional cleaning and sanitizing of all surfaces, including countertop s, pens, chairs, door handles, light switches, etc, prior to and following the patient s visit. [id number] VIOLET GALLOWAY NP [place] [address] [address] 06/03/2024 10:42:25 06/03/2024 14:18:35 Gynecologic examination [id number] Z01.419 Annual gynecologi geremias exam performed. Patient will come back in a year unless there are new symptoms. Suggest Calcium with Vitamin D if not eating in diet. Patient advised to get annual flu shot. Recommend yearly physicals and perform monthly breast exams. Genetic testing is available for patients with family history of cancer. Engage in safe sexual practices, use condoms. Encouraged to have daily exercise. Avoid tobacco and illicit drugs, moderation of alcohol. If BMI greater than 25 dietary consult advised. If you have any questions please call or email. Pap smear - pap w/ HPV collected STI testing - declined Polycystic ovary syndrome [id number] E28.2 - Differenti al diagnosis of cause of infertilit y includes: anovulator y cycles r/t PCOS.- We discussed the potential causes of infertilit y and rationale behind testing.- We discussed her reproducti ve potential in the context of her BMI which is 56.2. We reviewed that given her BMI >25 her natural fertility could be improved by even just a 5% wt loss.- The patient is asked to repeat diagnostic labs.- Discussed the fertile time of the cycle and options for tracking ovulation, including ovulation predictor kits and basal body temperatur e.-- Discussed timed intercours e every other day starting on Day 6 of period through to the next period.-- Discussed using LH surge kits, usually accurate and would recommend intercours e that day and the next day, then can wait until next cycle.-- Discussed Provera challenge test to start cycle: Provera 10 mg PO daily x 10 days-- Discussed ovulation induction with Clomid, which is initiated cycle day 5 at a dose of 50 mg daily for five days. If ovulation does not occur in the first cycle of treatment, the dose is increased to 100 mg. The couple is advised to have intercours e every other day for one week beginning five days after the last day of medication .--Continu e using LH strips to track ovulation. Take test after one month. Call office if conception does not occur and also if patient does not start another period.-- Recommend re-establi shing with [facility] infertilit y clinic. Discussed importance of a healthy lifestyle to reduce metabolic risks that can be associated with PCOS. Discussed weight loss strategies . Discussed restarting Metformin if hgb A1C is abnormal.A ll questions answered. Patient verbalizes agreement to plan of care. Health Concerns Section Related Observation LastModified by Organization Detai ls LastModified Time None Recorded Concern Status LastModified by Organization Details LastModified Time None Recorded Advance Directives Directive N: Payers Encounter Date Sequence Insurance Name Policy Number Policy Dumont Covered Member ID Dumont Member ID Guarantor Name 12/29/2020 1 [place] [id number] Margot Bruner [id number] Margot [place] 01/07/2021 1 [place] [id number] Margot Bruner [id number] Margot [place] 01/28/2021 1 [place] [id number] Margot Bruner [id number] Margot [place] 04/01/2021 1 [place] [id number] Margot Bruner [id number] Margot [place] 06/03/2024 2 [facility] [id number] Margot [place] [id number] Margot [place] 06/03/2024 1 [place] [id number] Jaiden Austin [id number] Margot Avila Notes Date Note Type Note Provider Name and Address Organization Details Recorded Time 1 text/html AmenorrheaReported bypatient.Onset/Timing: no menses for >1 year (Had menses 15yo. Had two periods on her own since that time; then two periods on OCP around age 16yo. No periods since stopping OCP after 2mos of use age 16yo. She has never been . She is engaged & wants to consider moving forward.Never had a US or other evaluation besides recent labs done by PCP. She will bring hard copies of these labs to her next vist.) Duration:menses normal 3-7 days (THe two cycles she had were only about 4-7d.) Quality:normal flow Severity:mild Context:negative test (Taken tests at home & always neg.); testosterone levels (wnl) Associated Symptoms:no breast tenderness; no nausea; no vomiting; no hot flashes; no vaginal dryness; no new hair growth; no hair loss; no night sweats; no headaches; no new visual changes Payton Page [facility] [address] [place], [address], [facility] 12/29/2020 15:38:21 1 text/html Annual GYNReported bypatient.Menstrual cycle:Irregular cycle intervals(Secondary amenorrhea) Urinary symptoms:No hematuria; No incontinence Vulva:No genital lesion Vagina:Normal vaginal discharge Breast:No breast pain; No breast lump; No nipple discharge Current Contraception:Monogamou s relationship; control not practiced Sexual complaints:No sexual complaints; No pain during intercourse; Normal libido Menopausal Symptoms:No menopausal symptoms; Normal vaginal lubrication Psychological symptoms:No depression; No anxiety; No PMDD Preventive measures:Encourage self breast examination; Encourage regular exercise; Encourage no tobacco use; Encourage regular mammograms starting age 40; Followed with Q3 year pap smear and high risk HPV typing Payton Page [facility] [address], [place], [address], [facility] 01/28/2021 15:00:00 1 text/html Here today for medication check of Cyclafem for secondary amenorrhea. Payton Page [facility] [address], [place], [address], [facility] 04/01/2021 12:01:50 5 text/html Annual GYNReported bypatient.History:activ elvira trying to conceive Menstrual cycle:Irregular cycle intervals Urinary symptoms:No hematuria; No incontinence Vulva:No genital lesion Vagina:Normal vaginal discharge Breast:No breast pain; No breast lump; No nipple discharge Current Contraception: control not practiced Sexual complaints:No sexual complaints; No pain during intercourse; Normal libido Menopausal Symptoms:No menopausal symptoms; Normal vaginal lubrication Psychological symptoms:No depression; No anxiety; No PMDD Preventive measures:Encourage self breast examination; Encourage regular exercise; Encourage no tobacco use; Encourage regular mammograms starting age 40 Patient here for annual exam and to re-establish care.Patient states that she has hx of PCOS confirmed with labs and pelvic u/s in 2020.Patient was going to [facility] in 2022 for infertility treatments with letrazole d/t anovulatory cycles and was taking Metformin. Patient states that there was discussion of switching to Clomid. Patient has had HSG that was WNL and her partner had a normal semen analysis completed.Patient switched insurances and stopped treatments over the past year.Patient states that she was having cycles every 1-2 months until September 2023. Patient has had irregular periods, every 3-4 months since then. Patient's LMP was 02/2024.Patient requests baseline labwork. VIOLET GALLOWAY, BETTY [address], [place], [address], [facility] 06/03/2024 13:17:10 OBGyn Episode No OBEpisode recorded.
--- NOTE | 2024-09-15 15:37 | ED_ITS ---
HPI - Abdominal Pain General Chief Complaint: Urogenital-Female Stated Complaint: stomach/back pain Time Seen by Provider: 09/15/24 15:36 Source: patient Mode of arrival: ambulatory Limitations: no limitations History of Present Illness HPI narrative: Patient is a 23-year-old female with abdominal pain for the past 4 days. Initially she had nausea and vomiting on day 1 and that resolved at this time. She has no urinary or vaginal complaints. No fever but chills on and off. the pain is roughly suprapubic area and into the right lower quadrant as well as into the back of lower abdomen. She has history of PCOS. Patient is currently on fertility medications to include Clomid and she is trying to get . She has been doing fertility treatment for a few years. MD elicited complaint: abdominal pain Pertinent past history: none Onset (ago): day(s) (4) Pain Consistency: constant Location: RLQ and suprapubic Severity: moderate Pain scale (0-10): 4 Quality: cramping and sharp Radiation: back ( lower) Migration to: no migration Exacerbating factors: nothing Relieving factors: nothing Context: confirms other ( patient having abdominal pain and lower back pain over the past 4 days with associated chills and day 1 nausea vomiting) Associated symptoms: nausea ( resolved), vomiting ( resolved) and chills Treatments prior to arrival: other ( none) Related Data Home Medications ?Medication ?Instructions ?Recorded ?Confirmed ?Last Taken ?Type No Home Medications 05/03/22 05/03/22 Unknown History Allergies Allergy/AdvReac Type Severity Reaction Status Date / Time No Known Allergies Allergy Verified 09/15/24 15:37 Review of Systems 2 Review of Systems: All systems reviewed & are unremarkable except as noted in HPI and below Constitutional: Constitutional: Reports no additional constitutional complaints Eyes: Eyes: Reports no additional eye complaints ENT: Reports system reviewed and no additional complaints, except as documented Cardiovascular: Cardiovascular: Reports no additional cardiovascular complaints Respiratory: Respiratory: Reports no additional respiratory complaints Gastrointestinal: Gastrointestinal: Reports no additional gastrointestinal complaints Genitourinary: Genitourinary: Reports no additional female genitourinary complaints Musculoskeletal: Musculoskeletal: Reports no additional musculoskeletal complaints Integumentary/Breasts: Skin/Breast: Reports system reviewed and no additional complaints, except as docu Neurologic: Reports system reviewed and no additional complaints, except as documented Psychiatric: Psychiatric: Reports no additional psychiatric complaints Endocrine: Endocrine: Reports no additional endocrine complaints Hematologic/Lymphatic: Hematologic/Lymphatic: Reports no additional hematologic/lymphatic complaints Allergic/Immunologic: Allergic/Immunologic: Reports no additional allergic/immunologic complaints PMFSH Past Medical History Medical History Morbid obesity Kidney stones Surgical History Surgical History No pertinent past surgical history Social History Social History Smoking status: Never smoker Exam 2 Const: General: healthy appearing Nutritional Appearance: well nourished and obese Orientation/consciousness: patient oriented x3 Limitations: no limitations HENMT: Head: normal to inspection Ears: external ears normal F sari/Nose/Sinus: Normal external nose present Eyes: Conjunctivae: conjunctivae normal Pupils: Equal, round and reactive pupils present EOM: EOMs intact bilaterally Neck: Neck: normal visual inspection Resp: Effort & Inspection: normal respiratory effort and not labored A uscultation: clear to auscultation bilaterally and no crackles Cardio: Rate: regular rate Rhythm: regular rhythm Heart sounds: no murmurs GI: Inspection: non-distended GI Palp: Yes Soft to palpation, Yes Tenderness to palpation present (GI) ( right upper quadrant and right lower quadrant and suprapubic), No Guarding due to palpation present (GI), No Rigid due to palpation, No Hernia present, No Palpable mass present and No Rebound tenderness present Auscultation: normal bowel sounds : General: Yes bladder normal to palpation Back/Spine/Pelvis: Back: no CVA tenderness Skin: General skin exam: normal color Rashes: no rashes Wounds: no wounds Neuro: General: patient oriented x3 Cranial nerves: Yes Nystagmus not present Speech: normal speech Extrem: General: normal to inspection Psych: Mental Status: mental status grossly normal Affect: normal affect Attitude: cooperative Course Vital Signs Vital signs: Vital Signs Temperature 37.2 C 09/15/24 15:35 Pulse Rate 79 09/15/24 15:35 Respiratory Rate 16 09/15/24 15:35 Blood Pressure 163/94 H 09/15/24 15:35 Pulse Oximetry 100 09/15/24 15:35 Oxygen Delivery Room Air 09/15/24 15:35 Temperature 37.2 C 09/15/24 15:35 Pulse Rate 93 09/15/24 17:00 Respiratory Rate 17 09/15/24 17:00 Blood Pressure 145/87 H 09/15/24 17:00 Pulse Oximetry 99 09/15/24 17:00 Oxygen Delivery Room Air 09/15/24 15:35 MDM - Abdominal Pain MDM Narrative Medical decision making narrative: patient is a 23-year-old female with abdominal pain and associated back pain. Will start with urinalysis and and further expand based on the results. further abdomen pain workup done at this time. CT scan was done of the abdomen and pelvis and shows [place] [address]; we will transfer patient to get a stat ultrasound of the left ovarian area to rule out acute processes to include ovarian torsion and ectopic . Lab Data Attestation: I reviewed the patient's lab results. 09/15/24 17:17 09/15/24 17:17 Labs: Lab Results 09/15/24 09/15/24 Range/Units 15:37 17:17 WBC 21.5 H* (4.8-10.8) K/mm3 RBC 5.36 (4.20-5.40) M/mm3 Hgb 13.0 (12.0-15.0) g/dL Hct 42.0 (35.0-49.0) % MCV 78.4 (78.0-102.0) fL MCH 24.3 L (27.0-31.0) pg MCHC 31.0 L (32-36) g/dL RDW 16.6 H (11.6-14.4) % Plt Count 372 (150-420) K/mm3 MPV 9.5 (9.2-11.8) fl Immature Gran % (Auto) Not Reportable Neut % (Auto) Not Reportable Lymph % (Auto) Not Reportable [place] % (Auto) Not Reportable Eos % (Auto) Not Reportable Baso % (Auto) Not Reportable Lymph # (Auto) Not Reportable [place] # (Auto) Not Reportable Eos # (Auto) Not Reportable Baso # (Auto) Not Reportable Abs Immat Gran (auto) Not Reportable Absolute Neuts (auto) Not Reportable Absolute Nucleated RBC Not Reportable Total Counted 100 Neutrophils % (Manual) 70 (46-73) % Band Neutrophils % 0 (0-6) % Lymphocytes % (Manual) 28 (18-44) % Monocytes % (Manual) 2 L (3-9) % Nucleated RBC % Not Reportable Abs Neuts (Manual) 15.05 H (1.7-7.2) K/mm3 Abs Lymphs (Manual) 6.02 H (1.1-4.5) K/mm3 Abs Monocytes (Manual) 0.43 (0.1-0.90) K/mm3 Atypical Lymphocytes Present Platelet Estimate Adequate (Adequate) Schistocytes None seen Sodium 137 (136-145) mmol/L Potassium 3.5 (3.5-5.1) mmol/L Chloride 100 (98-108) mmol/L Carbon Dioxide 25 (21-32) mmol/L Anion Gap 12 (4-12) mmol/L BUN 9 (7-18) mg/dL Creatinine 0.93 (0.55-1.02) mg/dL Estim Creat Clear Calc 113 ml/min Estimated GFR > 60 (59 - ) Glucose 91 (70-99) mg/dL Calculated Osmolality 282 L (285-295) mOsm/kg Lactic Acid 1.0 (0.4-2.0) mmol/L Calcium 8.9 (8.5-10.1) mg/dL Total Bilirubin 0.7 (0.00-1.00) mg/dL AST 11 L (15-37) U/L ALT 21 (14-59) U/L Alkaline Phosphatase 79 (46-116) U/L Total Protein 8.6 H (6.4-8.2) g/dL Albumin 3.7 (3.4-5.0) g/dL Lipase 22 (16-77) U/L Urine Color Light yellow (Yellow) Urine Appearance Clear (Clear) Urine pH 6.0 (5.0-8.0) Ur Specific [place] <= 1.005 L (1.010-1.020) Urine Protein Negative (Negative) Urine Glucose (UA) Negative (Negative) Urine Ketones Negative (Negative) Ur Blood (Man) Negative (Negative) Urine Nitrate Negative (Negative) Urine Bilirubin Negative (Negative) Urine Urobilinogen 0.2 (0.2-1.0) mg/dL Leukocyte Esterase Rfl Negative (Negative) MAEVE/UL Urine Test Negative Imaging Data Attestation: I personally reviewed and interpreted this imaging study as follows: Radiologist's impression: ITS Impressions Abdomen/Pelvis CT 09/15/24 17:40 IMPRESSION: 1. Cholelithiasis. 2. Mild hepatomegaly. 3. Slightly prominent left ovary. Ultrasound evaluation advised. 4. No evidence of appendicitis, diverticulitis or intestinal obstruction. No kidney stones. Discharge Plan Discharge Clinical Impression: Left ovarian enlargement, Female fertility problems Leukocytosis Qualifiers: Leukocytosis type: unspecified Qualified Code(s): D72.829 - Elevated white blood cell count, unspecified Abdominal pain Qualifiers: Abdominal location: unspecified location Qualified Code(s): R10.9 - Unspecified abdominal pain Patient Disposition: Acute Care Hospital Condition: Stable Patient Language: Scottish Prescriptions: No Action No Home Medications Follow-up/Referrals: Keenan Linares MD [Primary Care Provider] - Time of Disposition: 18:10
--- NOTE | 2024-09-15 15:50 | PC.NURSE ---
Patient was able to urinate but dropped cup into toilet, patient provided water to drink and will try again.
--- OUTSIDE RECORDS SUMMARY | 2024-09-15 16:11 | XMS_ITS | Clinical Summary ---
Author Organization [facility] Address [address] [place] [id number] Care Team Providers Care Graduate Nurse Name Role Phone Unavailable Primary Care Provider Unavailabl e Allergies No known active allergies Medications metFORMIN 500 mg/5 mL oral solution Take 500 mg by mouth 3 times daily. 10/21/2022 Active CALCIUM CARBONATE-VITAMI N D3 ORAL Take by mouth. Active OMEGA-3 FATTY ACIDS-FISH OIL ORAL Take by mouth. Active Active Problems No known active problems Social History Tobacco Use Types Packs/Day Years Used Date Smoking Tobacco: Never Smokeless Tobacco: Never Tobacco Cessation:Counseling Given: Not Answered Alcohol Use Standard Drinks/Week Comments Not Currently 0 (1 standard drink = 0.6 oz pur e alcohol) Comments Unknown Sex and Gender Information Value Date Recorded Sex Assigned at Not on file Legal Sex Female 8:40 AM CDT Gender Identity Not on file Sexual Orientation Not on file Plan of Treatment Health Maintenance Due Date Last Done Comments HPV VACCINES (1 - 3-dose series) 11/17/2014 DTAP/TDAP/TD VACCINES (1 - Tdap) 11/17/2018 HEPATITIS B VACCINES (1 of 3 - 19+ 3-dose series) 10/21 CERVICAL CANCER SCREENING 11/17/2020 HPV/Cotest (21-29) 11/17/2020 PAP SMEAR 11/17/2020 INFLUENZA VACCINE (#1) 2023 Insurance BCBS BLUE PREFERRED MEDICAID [place]
[2024-09-15 16:42] LABS: Add Urine Microscopic? NO; Appearance Urine Clear (Clear); Bilirubin Urine Negative (Negative); Blood Urine Negative (Negative); Color Urine Light Yellow (Yellow); Glucose Urine UA Negative (Negative); Ketones Urine Negative (Negative); Leukocyte Esterase Ur Negative LEU/UL (Negative); Nitrate Urine Negative (Negative); Protein Urine Negative (Negative); Specific Grav Ur <= 1.005 (1.010-1.020); Urobilinogen Urine 0.2 mg/dL (0.2-1.0)
[2024-09-15 16:43] LABS: Pregnancy On Board Control Positive; Urine Pregnancy Test Negative
[2024-09-15 17:22] LABS: Mean Corpuscular Hemoglobin 24.3 pg (27.0-31.0); Mean Corpuscular Volume 78.4 fL (78.0-102.0); Mean Platelet Volume 9.5 fl (9.2-11.8); Platelet Count Result 372 K/mm3 (150-420); Red Blood Count 5.36 M/mm3 (4.20-5.40); Red Cell Distribution Width 16.6 % (11.6-14.4)
[2024-09-15 17:25] LABS: White Blood Count 21.5 K/mm3 (4.8-10.8)
[2024-09-15 17:36] LABS: Alanine Aminotransferase 21 U/L (14-59); Albumin Level 3.7 g/dL (3.4-5.0); Alkaline Phosphatase 79 U/L (46-116); Anion Gap 12 mmol/L (4-12); Aspartate Amino Transferase 11 U/L (15-37); Bilirubin,Total 0.7 mg/dL (0.00-1.00); Blood Urea Nitrogen 9 mg/dL (7-18); Calcium 8.9 mg/dL (8.5-10.1); Carbon Dioxide 25 mmol/L (21-32); Chloride 100 mmol/L (98-108); Estimated CRCL calculation 113 ml/min; Estimated Glomerular Filt Rate > 60; Glucose 91 mg/dL (70-99); Lipase 22 U/L (16-77); Osmolality Calculated 282 mOsm/kg (285-295); Potassium 3.5 mmol/L (3.5-5.1); Sodium 137 mmol/L (136-145); Total Protein 8.6 g/dL (6.4-8.2)
[2024-09-15 17:44] LABS: Band Neutrophils Percent 0 % (0-6); Neutrophils Absolute Manual 15.05 K/mm3 (1.7-7.2); Neutrophils Percent Manual 70 % (46-73); Total Cells Counted 100
[2024-09-15 17:45] LABS: Atypical Lymphocytes Present; Lymphocytes Absolute Manual 6.02 K/mm3 (1.1-4.5); Lymphocytes Percent Manual 28 % (18-44); Monocytes Absolute Manual 0.43 K/mm3 (0.1-0.90); Monocytes Percent Manual 2 % (3-9); Platelet Estimate Adequate (Adequate); Schistocytes None Seen
[2024-09-15] MEDS: MORPHINE SULFATE (*CRX) 4 MG/ML INJ IM (18:15)
== END 2024-09-15 18:55 | disposition short-term general hospital (02) ==
PROVIDERS: Emergency Provider Emergency Medicine; PCP Internal Medicine
DX: N83.8 Other noninflammatory disorders of ovary, fallopian tube and broad ligament (principal); D72.829 Elevated white blood cell count, unspecified; R10.31 Right lower quadrant pain; N97.9 Female infertility, unspecified
CPT/HCPCS: 36415; 74176; 80053; 81003; 81025; 83605; 83690; 85025; 87040; 96372; 99285; J2270

== ENCOUNTER 2024-09-15 19:31 | Emergency (ER) | payer OTHER, SELFPAY ==
[2024-09-15] VITALS (7 sets, daily range): BP systolic 146–154; BP diastolic 62–81; PULSE 111; RESP 20; TEMP 37.2; O2SAT 97–100
--- NOTE | ~2024-09-15 | US_ITS ---
US pelvic complete w TV Ordering provider: Carmen Egan APRN History: . r/o ovarian torsion . Comparison: None. Technique: Transabdominal and endovaginal ultrasound of the pelvis (Doppler ultrasound interrogation techniques used as needed for this exam.) FINDINGS: CERVIX: Normal. UTERUS: Measures 8.4x 3.8x 3.7 cm in length which is within normal limits and is anteverted. No myom etrial masses. Multiple cystic areas in the lower uterine segment with the largest measures 0.6 x 0.7 x 0.7 cm. ENDOMETRIUM: Normal in thickness measuring 9.3 mm. No endometrial masses, cysts or fluid. CUL DE SAC: Minimal free fluid in the posterior cul-de-sac. RIGHT OVARY: Not visualized. LEFT OVARY: Normal in size measuring 2.9x 1.9x 2.1 cm. Normal echotexture. Doppler vascular flow pres ent. ADNEXA: Normal. No mass. IMPRESSION: Multiple cystic areas in the lower uterine segment. No definite evidence of torsion. Clinical correla tion advised. Minimal free fluid in the cul-de-sac. Otherwise, normal pelvic ultrasound. Reviewed, dictated and finalized at location A. IMPRESSION: Multiple cystic areas in the lower uterine segment. No definite evidence of tor yanet. Clinical correlation advised. Minimal free fluid in the cul-de-sac. Otherwise, normal pelvic ultrasound.
--- OUTSIDE RECORDS SUMMARY | 2024-09-15 19:34 | XMS_ITS | Clinical Summary ---
Author Organization [facility] Address [address] [place] [id number] Care Team Providers Care Lobster Fisherman Name Role Phone Unavailable Primary Care Provider [...]
--- OUTSIDE RECORDS SUMMARY | 2024-09-15 23:30 | XMS_ITS | Clinical Summary ---
Author Organization [facility] Address [address] [place] [id number] Care Team Providers Care Industrial Sweeper Cleaner Name Role Phone Unavailable Primary Care Provider [...]
[2024-09-16 00:02] VITALS: BP 149/83; O2SAT 100
[2024-09-16 00:03] VITALS: BP 124/90; PULSE 100; RESP 17; O2SAT 99
[2024-09-16] MEDS: DICYCLOMINE HCL 10 MG CAPSULE 20 MG PO (00:46)
[2024-09-16] MEDS: HYDROcodone/acetaminophen (*CRX) 5-325 MG TABLET 1 TAB PO (00:46)
[2024-09-16] MEDS: ONDANSETRON HCL ODT 4 MG TABLET PO (00:46)
--- NOTE | 2024-09-16 00:57 | ED_ITS ---
HPI - Abdominal Pain General Chief Complaint: Abdominal Pain Stated Complaint: US, transfer from [place] Time Seen by Provider: 09/15/24 23:21 History of Present Illness HPI narrative: Patient is a 23-year-old female who presents to the ER with complaints of right upper quadrant pain. She reports the pain started on , 3 days ago. It has been intermittent since then but today the pain became significantly worse. She went to [place] ER for evaluation and was sent here for an ultrasound for ovarian torsion rule out. Patient reports she recently went through a round of Clomid for fertility. She denies any urinary symptoms, back pain, recent fevers, or shortness of breath. Related Data Allergies Allergy/AdvReac Type Severity Reaction Status Date / Time ketorolac (From Toradol) Allergy Mild Hives Verified 09/16/24 00:39 Review of Systems Review of Systems: All systems reviewed & are unremarkable except as noted in HPI and below PMFSH Past Medical History Medical History Morbid obesity Kidney stones Surgical History Surgical History No pertinent past surgical history Social History Social History Smoking status: Never smoker Exam Narrative: GENERAL: Well appearing, obese, non-toxic, in no acute distress. HEAD: Normocephalic, atraumatic. NECK: Supple. No adenopathy, no masses. RESPIRATORY: Airway patent, respirations nonlabored. Clear to auscultation bilaterally, no rales, rhonchi, wheezing. CARDIOVASCULAR: Regular rate and rhythm without murmurs, rubs, or gallops. Peripheral pulses 2+ and equal bilaterally. ABDOMINAL: Soft, tender LUQ, nondistended, no hepatosplenomegaly. Normoactive BS. + Kitchen's sign, Negative Psoas sign. MUSCULOSKELETAL: Moves all extremities. Strength/ROM intact without gross deformities. SKIN: Warm, dry, normal color. No rashes. NEURO: A&O X3. Speech clear. Cranial nerves II-XII intact. No ataxic movements. PSYCHIATRIC: Appropriate mood and affect. Normal interaction. Course Vital Signs Vital signs: Vital Signs Temperature 37.2 C 09/15/24 19:32 Pulse Rate 111 H 09/15/24 19:32 Respiratory Rate 20 09/15/24 19:32 Blood Pressure 146/81 H 09/15/24 19:32 Pulse Oximetry 100 09/15/24 19:32 Oxygen Delivery Room Air 09/15/24 19:32 Temperature 37.2 C 09/15/24 19:32 Pulse Rate 100 09/16/24 00:03 Respiratory Rate 17 09/16/24 00:03 Blood Pressure 124/90 09/16/24 00:03 Pulse Oximetry 99 09/16/24 00:03 Oxygen Delivery Room Air 09/15/24 19:32 MDM - Abdominal Pain MDM Narrative Medical decision making narrative: Patient is a 23-year-old female who presents to the ER with complaints of right upper quadrant pain. She reports the pain started on , 3 days ago. It has been intermittent since then but today the pain became significa ntly worse. She went to [place] ER for evaluation and was sent here for an ultrasound for ovarian torsion rule out. Patient reports she recently went through a round of Clomid for fertility. She denies any urinary symptoms, back pain, recent fevers, or shortness of breath. Labs Ordered: Lab work performed at [facility] This CASING BUILDER spoke to the physician caring for patient at [facility] ER. He reports patient's abdominal CT scan is concerning for ovarian torsion so he is sending her here for further evaluation. Patient's abdominal CT scan indicates patient has gallstones but no indications of cholelithiasis. Imaging Ordered: Pelvic ultrasound Medications Ordered: Hydrocodone p.o., Zofran ODT, Bentyl p.o. Results: Patient's pelvic ultrasound indicates Multiple cystic areas in the lower uterine segment. No definite evidence of torsion. Clinical correlation advised. Minimal free fluid in the cul-de-sac. Otherwise, normal pelvic ultrasound. Diagnosis: Gallstones, ovarian cysts Patient Education/Shared MDM: Results of ultrasound shared with patient. She endorses improvement following medication administration. Pt was provided education that Clomid causes changes in liver function that can potentially affect bile composition, which is a factor in gallstone formation.? Patient strongly advised to maintain hydration status upon discharge and follow-up with her PCP and OBGYN as soon as possible. She will be discharged home with a prescription for Bentyl, Zofran, and [place]. Strict return precautions provided. Patient verbalized understanding and is in agreement with plan. Vital signs stable at time of discharge. All questions answered. Differential Diagnosis Differential diagnosis: Likely abdominal pain, gastroenteritis and other (ovarian cyst, ovarian torsion, gallstones) Imaging Data Attestation: I personally reviewed and interpreted this imaging study as follows: Radiologist's impression: ITS Impressions Pelvic/Transvag US 09/15/24 21:53 IMPRESSION: Multiple cystic areas in the lower uterine segment. No definite evidence of torsion. Clinical correlation advised. Minimal free fluid in the cul-de-sac. Otherwise, normal pelvic ultrasound. Discharge Plan Discharge Clinical Impression: Gallstone, Ovarian cyst Patient Disposition: Home Condition: Stable Instructions: Antibiotic Form, Biliary Colic (ED), Gallstones (ED), Low Fat Diet (ED) Additional Instructions: Please return to the ER with any worsening symptoms. Follow-up with primary care provider and your OBGYN as soon as possible. Take all medications as prescribed, including regularly scheduled medications. Patient Language: Lithuanian Prescriptions: New dicyclomine 20 mg tablet 20 mg PO TID Qty: 12 0RF ondansetron 4 mg tablet,disintegrating 4 mg PO Q6H PRN (Reason: nausea and vomiting) Qty: 14 0RF hydrocodone-acetaminophen 5-325 mg tablet 1 tablet PO Q6H PRN (Reason: pain) Qty: 5 0RF Follow-up/Referrals: Keenan Linares MD [Primary Care Provider] - Stand Alone Forms: Work/School Release IP
== END 2024-09-16 01:35 | disposition home or self-care (01) ==
PROVIDERS: Emergency Provider Registered Nurse; PCP Internal Medicine
DX: K80.20 Calculus of gallbladder without cholecystitis without obstruction (principal); N83.209 Unspecified ovarian cyst, unspecified side; N97.9 Female infertility, unspecified; E66.01 Morbid (severe) obesity due to excess calories; Z68.43 Body mass index [BMI] 50.0-59.9, adult; Z87.442 Personal history of urinary calculi
CPT/HCPCS: 76830; 76856; 99284; A9270